=== PATIENT | female | born 1965 | race Caucasian/White ===

== ENCOUNTER 2016-12-17 13:04 | Emergency (ER) | payer OTHER ==
[~2016-12-17] VITALS: Ht 167.6 cm; Wt 90.0 kg
[2016-12-17 13:06] VITALS: BP 131/72; PULSE 94; RESP 22; TEMP 97.9; O2SAT 96
== END 2016-12-17 13:56 | disposition left against medical advice (07) ==
LOC: NEPD 13:04
DX: R68.89 Other general symptoms and signs (principal)
CPT/HCPCS: 99281